=== PATIENT | female | born 2005 | race Caucasian/White ===

== ENCOUNTER 2023-03-16 22:13 | Emergency (ER) | payer BC ==
[~2023-03-16] VITALS: Ht 149.9 cm; Wt 43.1 kg
[2023-03-16] MEDS ORDERED: VIMPAT200 MG PO (22:33)
[2023-03-16] MEDS ORDERED: VITAMIN D21250 MCG PO (22:34)
[2023-03-16] MEDS ORDERED: FOLIC ACID0.8 M1 PO (22:34)
[2023-03-16] MEDS ORDERED: CARNITOR330 MG PO (22:35)
[2023-03-17 00:56] LABS: HEMATOCRIT 39.8 % (36.0-45.00); HEMOGLOBIN 13.4 g/dL (12.0-15.00); MEAN CELL VOLUME 86.3 fL (80.00-100.00); MEAN CORPUSCULAR HGB CONC 33.7 g/dl (32.0-36.0); PLATELET COUNT 170 K/uL (150-450); RED BLOOD COUNT 4.61 M/uL (4.00-6.00); RED CELL DISTRIBUTION WIDTH 13.4 % (11.5-14.5)
[2023-03-17 01:39] LABS: ALKALINE PHOSPHATASE 66 U/L (50-136); ALT/SGPT 15 U/L (12-78); ANION GAP 13 (10.0-20.0); AST/SGOT 13 U/L (15-37); BILIRUBIN TOTAL 0.28 mg/dL (0.3-1.2); BLOOD UREA NITROGEN 17 mg/dL (7-18); BUN CREA RATIO 30 (7.0-25.0); CALCIUM 9.1 mg/dL (8.5-10.1); CARBON DIOXIDE 24 mEq/L (21-32); CHLORIDE 106 mmol/L (98-107); CREATININE SERUM 0.56 mg/dL (0.55-1.02); GFR 139.46; GLOBULINA 3.3 G/DL (2.4-3.5); GLUCOSE FASTING 99 mg/dL (65-100); OSMOLALITY SERUM 279 MOSM/KG (275-295); POTASSIUM 3.81 mEq/L (3.5-5.1); SODIUM 139 mmol/L (136-145); TOTAL PROTEIN 7.3 gm/dL (6.4-8.2)
[2023-03-17 02:18] LABS: CKMB < 1.0 NG/ML (0.5-3.6)
== END 2023-03-17 14:06 | disposition home or self-care (01) ==
LOC: EMR PED 22:14 → ER 22:14 → EMR PED 23:05
PROVIDERS: Emergency Medicine
DX: G40.89 Other seizures (principal); Z88.8 Allergy status to other drugs, medicaments and biological substances; Z20.822 Contact with and (suspected) exposure to COVID-19